=== PATIENT | female | born 1955 | race Caucasian/White ===

== ENCOUNTER → 2016-09-19 | Outpatient (CLI) | payer BC ==
[~2016-09-19] MED LIST: SIMV20TA2 PO
--- NOTE | 2016-09-19 13:11 | DIAGNOSTIC IMAGING REPORT ---
CHEST 2 VIEWS ROUTINE CLINICAL HISTORY: R06.02 SOB (shortness of breath) on [id number] dyspnea COMPARISON STUDY: 08/23/2009 FINDINGS: The bones soft tissues and hemidiaphragms are normal. The cardiomediastinal silhouette is normal. The lungs are clear. The pulmonary vasculature is normal. IMPRESSION: Negative chest. Electronically signed by: Arturo Vinson M.D. 09/19/2016 1:09 PM Dictated Date/Time: 09/19/2016 1:09 PM
== END | disposition home or self-care (01) ==
LOC: C.RAD 12:49
PROVIDERS: ATTEND Internal Medicine
DX: R06.02 Shortness of breath (principal)

== ENCOUNTER → 2016-09-19 | Outpatient (CLI) | payer BC ==
[2016-09-19 14:03] LABS: URINE APPEARANCE CLEAR (CLEAR); URINE BILIRUBIN NEG (NEG); URINE COLOR YELLOW; URINE EPITHELIAL CELL AUTO 0-5 /lpf (0-5); URINE NITRITE NEG (NEG); URINE PH 5.5 (4.5-7.5); URINE SPECIFIC GRAVITY 1.016 (1.000-1.030); UROBILINOGEN NEG (NEG); ZZUR CULT IF INDIC CLEAN CATCH YES
[2016-09-19 14:13] LABS: MANUAL MICROSCOPIC REQUIRED? NO; REVIEW REQ? NO
== END | disposition home or self-care (01) ==
LOC: C.LABSPEC 10:57
PROVIDERS: ATTEND Internal Medicine
DX: R30.0 Dysuria (principal)

== ENCOUNTER → 2016-10-14 | Outpatient (CLI) | payer BC ==
[2016-10-14 11:31] LABS: HEMATOCRIT 38.7 % (37-47); MEAN CELL VOLUME 86.2 fL (80-100); MEAN CORPUSCULAR HGB CONC 33.6 g/dl (32-36); MEAN PLATELET VOLUME 10.3 fL (7.4-10.4); PLATELET COUNT 235 K/uL (130-400); RED BLOOD COUNT 4.49 M/uL (4.2-5.4); WHITE BLOOD COUNT 3.84 K/uL (4.8-10.8)
[2016-10-14 11:46] LABS: ALT/SGPT 23 U/L (12-78); AST/SGOT 14 U/L (15-37); BLOOD UREA NITROGEN 19 mg/dl (7-18); BUN/CREATININE RATIO 25.5 (10-20); CALCIUM 8.4 mg/dl (8.5-10.1); CARBON DIOXIDE 30 mmol/L (21-32); CHLORIDE 106 mmol/L (98-107); CREATININE 0.74 mg/dl (0.60-1.20); ESTIMATED AVERAGE GLUCOSE 160 mg/dl; GLUCOSE 148 mg/dl (70-99); HA1C FLAG Normal (Normal); POTASSIUM 4.2 mmol/L (3.5-5.1); SODIUM 143 mmol/L (136-145)
[2016-10-14 11:57] LABS: ALB/GLOB RATIO 1.2 (0.9-2); ALKALINE PHOSPHATASE 61 U/L (45-117); CHOLESTEROL 158 mg/dl (0-200); CHOLESTEROL/HDL RATIO 2.6; HDL CHOLESTEROL 61 mg/dl; LDL CHOLESTEROL CALCULATED 87 mg/dl; TRIGLYCERIDES 48 mg/dl (0-150); VERY LOW DENSITY LIPOPROT CALC 10 mg/dl
== END | disposition home or self-care (01) ==
LOC: C.LABBC 07:53
PROVIDERS: ATTEND Internal Medicine
DX: E11.9 Type 2 diabetes mellitus without complications (principal)

== ENCOUNTER → 2017-01-01 | Outpatient (CLI) | payer BC ==
[2017-01-01 17:47] LABS: LYME DISEASE AB IGG NEG (NEG); LYME DISEASE AB IGM NEG (NEG)
--- NOTE | 2017-01-15 13:31 | CODING QUERY NO DIAGNOSIS ---
TREATMENT RENDERED WITHOUT A DIAGNOSIS To promote full compliance with coding requirements relating to patient care, physician participation is requested in all cases of mud trucker uncertainty. Please assist us with providing a diagnosis/symptom for the test(s) below: A diagnosis/symptom was not documented on your Order. A valid diagnosis/symptom is required to bill all insurances. Please remember that we are unable to code a diagnosis of rule out, probable, possible, questionable, or suspected. Tests that require a diagnosis: * LYME IGG & IGM +WB CONFIRM DIAGNOSIS: Provider Signature: Date: Thank you Sharon [place] [employer] Information Management Once completed, please kindly fax back to [phone] For questions please call [phone]
== END | disposition home or self-care (01) ==
LOC: C.LABBC 09:31
PROVIDERS: ATTEND Physician Assistant Medical
DX: T14.8 Other injury of unspecified body region (principal); X58.XXXA Exposure to other specified factors, initial encounter

== ENCOUNTER → 2017-02-08 | Outpatient (CLI) | payer BC | END | disposition home or self-care (01) | LOC: C.PAPS 18:17 | PROVIDERS: ATTEND Obstetrics & Gynecology | DX: Z01.419 Encounter for gynecological examination (general) (routine) without abnormal findings (principal) ==

== ENCOUNTER → 2017-03-04 | Outpatient (CLI) | payer BC ==
[2017-03-04 18:11] LABS: LYME DISEASE AB IGG NEG (NEG); LYME DISEASE AB IGM NEG (NEG)
--- NOTE | 2017-03-26 08:20 | EDITING REQUIRED CODING QUERY ---
TREATMENT RENDERED WITHOUT A DIAGNOSIS To promote full compliance with coding requirements relating to patient care, physician participation is requested in all cases of information coder uncertainty. Please assist us with providing a diagnosis/symptom for the test(s) below: A diagnosis/symptom was not documented on your Order. A valid diagnosis/symptom is required to bill all insurances. Please remember that we are unable to code a diagnosis of rule out, probable, possible, questionable, or suspected. Tests that require a diagnosis: WE NEED A PRIMARY DX. CANT USE TICK BITE PRIMARY LYME ROUTINE VENIPUNCTURE nonvenomous insect bite. Provider Signature: Date: Thank you Nelida Hernandez [facility] Information Management Once completed, please kindly fax back to [phone] For questions please call [phone]
== END | disposition home or self-care (01) ==
LOC: C.LABBFT 16:32
PROVIDERS: ATTEND Physician Assistant Medical
DX: S20.162A Insect bite (nonvenomous) of breast, left breast, initial encounter (principal); W57.XXXA Bitten or stung by nonvenomous insect and other nonvenomous arthropods, initial encounter

== ENCOUNTER → 2017-04-16 | Outpatient (CLI) | payer BC ==
--- NOTE | 2017-04-16 15:33 | MAMMOGRAPHY REPORT ---
BILATERAL DIGITAL SCREENING MAMMOGRAM TOMOSYNTHESIS WITH CAD: 04/16/2017 CLINICAL HISTORY: Routine screening. Patient has no complaints. TECHNIQUE: Breast tomosynthesis in addition to standard 2D mammography was performed. Current study was also evaluated with a Computer Aided Detection (CAD) system. COMPARISON: Comparison is made to exams dated: 04/14/2016 mammogram, 04/24/2015 mammogram, 04/11/2015 ma mmogram, 04/10/2014 mammogram, 10/23/2013 mammogram, and 04/10/2013 mammogram - [facility] nter. BREAST COMPOSITION: There are scattered areas of fibroglandular density in both breasts. FINDINGS: No suspicious masses, calcifications, or areas of architectural distortion are noted in ei ther breast. There has been no significant interval change compared to prior exams. Bilateral benign -appearing calcifications are not significantly changed. Biopsy marker clips are again noted within the left upper outer quadrant. IMPRESSION: ACR BI-RADS CATEGORY 2: BENIGN There is no mammographic evidence of malignancy. A 1 year screening mammogram is recommended. The pa tient will receive written notification of the results. Approximately 10% of breast cancers are not detected with mammography. A negative mammographic report should not delay biopsy if a clinically suggestive mass is present. Olga Macias M.D. ah/:04/16/2017 10:27:34 Multifocal Button Grinder: Tori DERAS(Rigoberto)(Yamilka)(BD), [facility] letter sent: Normal 1/2 BI-RADS Code: ACR BI-RADS Category 2: Benign
== END | disposition home or self-care (01) ==
LOC: C.MAMM 08:31
PROVIDERS: ATTEND Obstetrics & Gynecology
DX: Z12.31 Encounter for screening mammogram for malignant neoplasm of breast (principal)

== ENCOUNTER → 2017-04-22 | Outpatient (CLI) | payer BC ==
[2017-04-22 10:53] LABS: BASO % 0.2 %; BASO ABS # 0.01 K/uL (0-0.2); COMPLETE YES; HEMATOCRIT 39.1 % (37-47); LYMPH % 34.9 %; MEAN CELL VOLUME 88.1 fL (80-100); MEAN PLATELET VOLUME 9.9 fL (7.4-10.4); MONO % 13.2 %; NEUT % 48.7 %; PLATELET COUNT 242 K/uL (130-400); RED BLOOD COUNT 4.44 M/uL (4.2-5.4); WHITE BLOOD COUNT 4.01 K/uL (4.8-10.8)
[2017-04-22 11:26] LABS: ALT/SGPT 23 U/L (12-78); BLOOD UREA NITROGEN 10 mg/dl (7-18); CALCIUM 8.7 mg/dl (8.5-10.1); CARBON DIOXIDE 31 mmol/L (21-32); CHLORIDE 104 mmol/L (98-107); GLUCOSE 142 mg/dl (70-99); POTASSIUM 4.2 mmol/L (3.5-5.1); SODIUM 140 mmol/L (136-145)
[2017-04-22 11:38] LABS: ALB/GLOB RATIO 1.1 (0.9-2); ALKALINE PHOSPHATASE 73 U/L (45-117); AST/SGOT 18 U/L (15-37); BUN/CREATININE RATIO 14.1 (10-20); CHOLESTEROL 173 mg/dl (0-200); CHOLESTEROL/HDL RATIO 3.1; CREATININE 0.69 mg/dl (0.60-1.20); HDL CHOLESTEROL 55 mg/dl; LDL CHOLESTEROL CALCULATED 99 mg/dl; TRIGLYCERIDES 96 mg/dl (0-150); VERY LOW DENSITY LIPOPROT CALC 19 mg/dl
[2017-04-22 12:00] LABS: ESTIMATED AVERAGE GLUCOSE 163 mg/dl; HA1C FLAG Normal (Normal)
== END | disposition home or self-care (01) ==
LOC: C.LABBC 07:44
PROVIDERS: ATTEND Internal Medicine
DX: E11.65 Type 2 diabetes mellitus with hyperglycemia (principal)

== ENCOUNTER → 2017-07-30 | Outpatient (CLI) | payer BC ==
[2017-07-30 13:50] LABS: LYME DISEASE AB IGG NEG (NEG); LYME DISEASE AB IGM NEG (NEG)
== END | disposition home or self-care (01) ==
LOC: C.LABBC 09:09
PROVIDERS: ATTEND Physician Assistant Medical
DX: T14.8XXA Other injury of unspecified body region, initial encounter (principal); W57.XXXA Bitten or stung by nonvenomous insect and other nonvenomous arthropods, initial encounter

== ENCOUNTER → 2017-11-05 | Outpatient (CLI) | payer OTHER ==
[2017-11-05 11:29] LABS: ALBUMIN 3.8 gm/dl (3.4-5.0); ALT/SGPT 25 U/L (12-78); AST/SGOT 18 U/L (15-37); BLOOD UREA NITROGEN 14 mg/dl (7-18); CALCIUM 8.7 mg/dl (8.5-10.1); CARBON DIOXIDE 30 mmol/L (21-32); CHOLESTEROL 182 mg/dl (0-200); CREATININE 0.76 mg/dl (0.60-1.20); GLUCOSE 186 mg/dl (70-99); SODIUM 139 mmol/L (136-145)
[2017-11-05 11:39] LABS: ALKALINE PHOSPHATASE 79 U/L (45-117); LDL CHOLESTEROL CALCULATED 105 mg/dl; TOTAL PROTEIN 7.1 gm/dl (6.4-8.2)
[2017-11-05 11:53] LABS: HEMOGLOBIN A1C 7.8 % (4.5-5.6)
== END | disposition home or self-care (01) ==
LOC: C.LABBC 08:08
PROVIDERS: ATTEND Internal Medicine
DX: E11.65 Type 2 diabetes mellitus with hyperglycemia (principal)

== ENCOUNTER 2017-12-23 05:20 | Observation (INO) | payer OTHER ==
[2017-12-13 08:09] VITALS: BMI 26.0
--- NOTE | 2017-12-13 08:38 | PAT Medication Instructions ---
"Service Date Dec 13, 2017. Current Home Medication List Ascorbic Acid (Vitamin C), 1 TAB PO TID Aspirin (Aspirin Ec), 81 MG PO QAM Calcium (Calcium), Unknown Dose QDD Dexlansoprazole (Dexilant), 1 CAP PO QAM Glipizide (Glipizide Er), 1 TAB PO QAM Levothyroxine Sodium (Levothyroxine Sodium), 1 TAB PO QAM Metformin Hcl (Glucophage), 500 MG PO TID Multivitamin (Multivitamin), 1 TAB PO QDD Nystatin/Triamcinolone (Mycogen ||), 1 APPLN TOP UD PRN for PRN Simvastatin (Zocor), 20 MG PO QPM Vitamin E (Vitamin E), 1 TAB PO QDD Medication Instructions For Your Scheduled Surgery - Hold the following medications starting tomorrow (12/14): Vitamin E (Vitamin E), 1 TAB PO QDD - Hold the following medications 5 days prior to surgery (per surgeon): Aspirin (Aspirin Ec), 81 MG PO QAM - Hold the following medications 24 hours prior to surgery: Nystatin/Triamcinolone (Mycogen ||), 1 APPLN TOP UD PRN for PRN - Hold the following medications the morning of surgery: Ascorbic Acid (Vitamin C), 1 TAB PO TID Glipizide (Glipizide Er), 1 TAB PO QAM Metformin Hcl (Glucophage), 500 MG PO TID - Take the following medications the morning of surgery with a sip of water: Dexlansoprazole (Dexilant), 1 CAP PO QAM Levothyroxine Sodium (Levothyroxine Sodium), 1 TAB PO QAM - Take the following medications as scheduled the night before surgery: Ascorbic Acid (Vitamin C), 1 TAB PO TID Calcium (Calcium), Unknown Dose QDD Metformin Hcl (Glucophage), 500 MG PO TID Multivitamin (Multivitamin), 1 TAB PO QDD Simvastatin (Zocor), 20 MG PO QPM If you have any questions please call us at [phone] or [phone] or [phone]"
[2017-12-13 10:39] LABS: BASO % 0.6 %; BASO ABS # 0.02 K/uL (0-0.2); EOS % 1.2 %; EOS ABS # 0.04 K/uL (0-0.5); HEMATOCRIT 37.6 % (37-47); HEMOGLOBIN 12.7 g/dL (12.0-16.0); LYMPH % 29.9 %; LYMPH ABS # 1.01 K/uL (1.2-3.4); MEAN CELL VOLUME 87.4 fL (80-100); MEAN CORPUSCULAR HEMOGLOBIN 29.5 pg (25-34); MEAN CORPUSCULAR HGB CONC 33.8 g/dl (32-36); MEAN PLATELET VOLUME 9.7 fL (7.4-10.4); MONO % 12.4 %; MONO ABS # 0.42 K/uL (0.11-0.59); NEUT % 55.9 %; NEUT ABS # 1.89 K/uL (1.4-6.5); PLATELET COUNT 226 K/uL (130-400); RED CELL DISTRIBUTION WIDTH CV 12.7 % (11.5-14.5); RED CELL DISTRIBUTION WIDTH SD 40.5 fL (36.4-46.3); WHITE BLOOD COUNT 3.38 K/uL (4.8-10.8)
[~2017-12-23] VITALS: Ht 154.9 cm; Wt 61.0 kg
[2017-12-23] VITALS (9 sets, daily range): BP systolic 102–160; BP diastolic 67–90; PULSE 67–105; TEMP 36.4–36.9; O2SAT 93–98; Ht 154.9 cm; Wt 61.0 kg
[~2017-12-23 05:20] MED LIST changes: +ASCA500 PO; +ASPI81TA28 PO; +CALC1CAP24; +DEXL60CA4 PO; +GLC/500 PO; +GLIP2.5T11 PO; +LEVO100T7 PO; +MULT-506 PO; +NYSTOIN5 TOP; +VITA1TAB4 PO
[2017-12-23] MEDS: LACTATED RINGER'S 1000ML 1,000 ML IV SCH ×2 (05:54→14:46)
[2017-12-23] MEDS ORDERED: CEFAZOLIN 2000MG IV PUSH 15 ML IV SCH (06:00)
[2017-12-23] MEDS ORDERED: DEXAMETHASONE SOD INJ 4 MG/ML VIAL ONE (06:46)
[2017-12-23] MEDS ORDERED: NEOSTIGMINE METHYLSULFATE 5 MG/5 ML SYR ONE (06:46)
[2017-12-23] MEDS ORDERED: GLYCOPYRROLATE INJ 0.2 MG/ML VIAL ONE ×2 (06:46→07:35)
[2017-12-23] MEDS ORDERED: FENTANYL CITRATE INJ 50 MCG/1 ML 2 ML VIAL ONE ×2 (06:46→07:50)
[2017-12-23] MEDS ORDERED: LIDOCAINE HCL 2% 2 ML VIAL (20MG/ML) ONE (06:46)
[2017-12-23] MEDS ORDERED: PROPOFOL IV EMULSION 10 MG/ML 20 ML VIAL ONE (06:46)
[2017-12-23] MEDS ORDERED: ONDANSETRON INJ 2 MG/ML 2 ML VIAL ONE (06:46)
[2017-12-23] MEDS ORDERED: MIDAZOLAM HCL 1 MG/ML 2ML VIAL ONE (06:47)
--- NOTE | 2017-12-23 06:49 | History & Physical Bridge Note ---
H&P Re-Evaluation Bridge Note: I have examined the patient, reviewed the History & Physical and in the interval since the performance of the History & Physical I have noted the following changes of clinical significance: No changes noted
[2017-12-23] MEDS ORDERED: EpINEphrine INJ 1MG/ML AMP 1 MG/ML AMP ONE (06:53)
[2017-12-23] MEDS ORDERED: BUPIVACAINE 0.5 % 5 MG/1 ML MPF 30ML VIAL ONE (06:53)
[2017-12-23] MEDS ORDERED: NURSING VERBAL MED ORDER ONE ×2 (06:55→12:45)
[2017-12-23] MEDS ORDERED: SCOPOLAMINE 1.5 MG TDSY TD ONE (06:57)
[2017-12-23] MEDS ORDERED: SUCCINYLCHOLINE CHLORIDE 20 MG/ML 10 ML VIAL IV ONE (07:35)
[2017-12-23] MEDS ORDERED: LARYING-O-JET KIT (LTA) ONE (07:35)
[2017-12-23] MEDS ORDERED: ROCURONIUM BROMIDE 10 MG/ML 5 ML VIAL ONE (07:35)
[2017-12-23] MEDS ORDERED: PHENYLEPHRINE 100MCG/ML 5ML SYR ONE (07:35)
[2017-12-23] MEDS ORDERED: EpHEDrine SULFATE 50MG/5ML SYR ONE (07:35)
[2017-12-23] MEDS ORDERED: ATROPINE SULFATE 0.1 MG/ML 5ML SYR IV PRN (07:45)
[2017-12-23] MEDS ORDERED: PHENYLEPHRINE 100MCG/ML 5ML SYR IV PRN (07:45)
[2017-12-23] MEDS ORDERED: HYDROmorphone INJ 2 MG/ML SYR/VIAL IV PRN (07:45)
[2017-12-23] MEDS ORDERED: ONDANSETRON INJ 2 MG/ML 2 ML VIAL IV PRN ×2 (07:45→09:15)
[2017-12-23] MEDS ORDERED: EpHEDrine SULFATE INJ 50 MG/ML AMP IV PRN (07:45)
[2017-12-23] MEDS ORDERED: ESMOLOL HCL 10 MG/ML 10 ML VIAL ONE (08:16)
[2017-12-23] MEDS ORDERED: KETOROLAC TROMETHAMINE 30 MG/ML VIAL ONE (08:37)
--- NOTE | 2017-12-23 08:45 | [facility] Post Operative Brief Note ---
Immediate Operative Summary Operative Date December 23, 2017. Pre-Operative Diagnosis Symptomatic Hiatal Hernia Post-Operative Diagnosis Symptomatic Hiatal Hernia Procedure(s) Performed Laparoscopic Hiatal Hernia Repair with Gastropexy Surgeon Dr Tucker Cv Rn Surgeon(s) Anika Roldan Estimated Blood Loss 5cc Findings Consistent with Post-Op Diagnosis Specimens None as per surgeon Anesthesia Type General Complication(s) none
[2017-12-23] MEDS ORDERED: HYDROCODONE/ACETAMIN 5/325MG TAB PO PRN (09:15)
[2017-12-23] MEDS ORDERED: IBUPROFEN 600 MG TAB PO PRN (09:15)
[2017-12-23] MEDS ORDERED: MoRPHine SULFATE 4 MG/ML 1 ML CARP\\VIAL IV PRN ×2 (09:15)
[2017-12-23] MEDS ORDERED: IV FLUIDS COMPLETED PRN (10:15)
--- NOTE | 2017-12-23 10:46 | Anesthesiology Progress Note ---
Anesthesia Post Op Note Date & Time December 23, 2017 at 10:46 Vital Signs Pain Intensity: 1 Vital Signs Past 12 Hours Date Time Temp Pulse Resp B/P (MAP) Pulse Ox O2 Delivery O2 Flow Rate FiO2 12/23/17 09:55 153/79 12/23/17 09:52 68 16 12/23/17 09:52 69 16 98 12/23/17 09:51 146/71 12/23/17 09:47 66 18 97 12/23/17 09:47 66 18 12/23/17 09:45 152/86 12/23/17 09:42 89 12 97 12/23/17 09:42 88 12 12/23/17 09:41 36.5 147/76 12/23/17 09:40 87 13 97 12/23/17 09:40 87 13 12/23/17 09:35 86 11 12/23/17 09:35 86 11 157/81 97 12/23/17 09:30 66 15 149/83 100 12/23/17 09:30 66 15 12/23/17 09:26 162/82 12/23/17 09:25 67 13 12/23/17 09:25 70 13 100 12/23/17 09:21 164/75 12/23/17 09:20 Nasal Cannula 3 12/23/17 09:20 85 14 100 12/23/17 09:20 84 14 12/23/17 09:15 78 13 12/23/17 09:15 65 13 157/76 100 12/23/17 09:10 89 14 12/23/17 09:10 89 14 154/84 100 12/23/17 09:05 91 14 12/23/17 09:05 90 14 154/86 100 12/23/17 09:02 154/83 12/23/17 09:01 135/109 12/23/17 09:00 96 17 12/23/17 09:00 96 17 99 12/23/17 08:55 99 18 140/79 99 12/23/17 08:55 99 18 12/23/17 08:55 36.2 98 16 140/79 100 Oxymask 10 12/23/17 05:44 36.9 91 16 160/90 (113) 96 Room Air Notes Mental Status: alert / awake / arousable, participated in evaluation Pt Amnestic to Procedure: Yes Nausea / Vomiting: adequately controlled Pain: adequately controlled Airway Patency, RR, SpO2: stable & adequate BP & HR: stable & adequate Hydration State: stable & adequate Anesthetic Complications: no major complications apparent
[2017-12-23] MEDS ORDERED: D5W AND 1/2NSS + 20MEQ KCL 1,000 ML IV SCH (11:30)
[2017-12-23 11:43] LABS: PTT PATIENT 22.9 SECONDS (21.0-31.0)
--- NOTE | 2017-12-23 11:49 | [facility] Operative Report ---
Operative Report Operative Date December 23, 2017. Pre-Operative Diagnosis Symptomatic Hiatal Hernia Post-Operative Diagnosis Symptomatic Hiatal Hernia Procedure(s) Performed Laparoscopic Hiatal Hernia Repair with Gastropexy Surgeon Dr Tucker Psych Np Surgeon(s) Anika Roldan Estimated Blood Loss 5cc Specimens None as per surgeon Anesthesia Type General Complication(s) none Description of Procedure After informed consent was obtained the patient was taken to the operating room and placed in the supine position. After successful intubation the abdomen was sterilely prepped and draped in usual fashion. A supraumbilical incision was made with 11 blade scalpel and carried down through the soft tissues electrocautery. Anterior rectus fascia was opened using electrocautery and 2 # 0 Vicryl stay sutures were placed. Peritoneum was elevated with hemostats and incised under direct vision using a Metzenbaum scissor. A finger sweep was performed to take down any underlying adhesions and a 12 mm Cabrales trocar was placed. The abdomen was insufflated to 18 mmHg. Laparoscope was inserted and the abdomen was examined 360. No gross abnormalities are identified. A subxiphoid 12 mm port a right upper quadrant 5 mm port in the left mid abdominal 5 mm port and a right mid abdominal 5 mm port were all placed under direct vision. A liver retractor was used throughout the case to help with exposure. When we elevated the left lobe liver it did show a moderate-sized probably 5 cm hiatal hernia with gastric incarceration. Probably one third of the stomach was incarcerated. We are able to place the patient in a reverse Trendelenburg position and reduce the stomach without much difficulty. We had anesthesia replace the NG tube with a 50 Uzbek bougie to help identify the esophagus. I began along the right sheila the diaphragm and took down the gastrohepatic ligament. I followed the right sheila up and around anteriorly and took down the hernia sac. I continued to work my way around the lateral side just medial to the left sheila of the diaphragm. Eventually I was able to completely excise the hernia sac with the sonocision device. Once we had this down the esophagus itself was readily identifiable. I was able able to elevate it and skeletonized the diaphragm so that I could place a posterior stitch. I used the Endo Stitch device with 0 Surgidac sutures. I reapproximated the left and right crew posterior to the esophagus initially. Once this was done I then closed it primarily superior to the esophagus as well. Once I had the defect completely closed it did not appear to be impinging on the esophagus itself. I was able to easily remove the bougie without difficulty. The diaphragm was rather lax and I was able to perform this repair without undue tension. I then decided perform a gastropexy in case the sutures would fail. I again used O Surgidac and sutured the cardia of the stomach on the lesser curvature side to the right sheila the diaphragm. I then secured the fundus to the left sheila the diaphragm. There was adequate hemostasis at the end of the procedure. No other abnormalities were identified in the abdomen. The trochars were removed and the abdomen was desufflated. The fascia the camera port was closed using 0 Vicryl [id number] fashion. All wounds were irrigated and closed using 4-0 Monocryl. Marcaine was injected around for postoperative analgesia and skin glue used as a dressing. Patient was awakened extubated transferred recovery in stable condition. My physician communications assistant was present throughout the entire case. She helped prep the patient. She helped with exposure for trocar placement. She helped retract the stomach throughout as well as manage the camera. She also helped with wound closure and dressing placement. I attest to the content of the Intraoperative Record and any orders documented therein. Any exceptions are noted below.
[2017-12-23 12:00] LABS: CREATININE 0.62 mg/dl (0.60-1.20)
[2017-12-23] MEDS: PANTOprazole INJ 40 MG in SYRINGE 0 ML IV SCH (12:45)
[2017-12-23] MEDS: METFORMIN HCL 500 MG TAB PO SCH ×2 (13:37→21:22)
[2017-12-23] MEDS: CHECK SCOPOLAMINE PATCH PLACEMENT SCH (16:16)
[2017-12-23] MEDS: HYDROCODONE/ACETAMIN 5/325MG TAB PO PRN (19:27)
[2017-12-24] MEDS: LACTATED RINGER'S 1000ML 1,000 ML IV SCH ×2 (00:51→07:51)
[2017-12-24 02:54] VITALS: BP 113/71; PULSE 72; TEMP 36.7; O2SAT 90
[2017-12-24 07:22] VITALS: BP 120/66; PULSE 75; TEMP 36.9; O2SAT 93
[2017-12-24] MEDS: CHECK SCOPOLAMINE PATCH PLACEMENT SCH ×2 (07:33)
[2017-12-24] MEDS: HYDROCODONE/ACETAMIN 5/325MG TAB PO PRN (07:36)
--- NOTE | 2017-12-24 07:54 | Anesthesiology Progress Note ---
Anesthesia Post Op Note Date & Time December 24, 2017 at 07:54 Vital Signs Pain Intensity: 6.0 Vital Signs Past 12 Hours Date Time Temp Pulse Resp B/P (MAP) Pulse Ox O2 Delivery O2 Flow Rate FiO2 12/24/17 07:22 36.9 75 17 120/66 (84) 93 Room Air 12/24/17 02:54 36.7 72 14 113/71 (85) 90 Room Air 12/23/17 23:45 Room Air 12/23/17 23:28 36.6 75 14 102/67 (79) 93 Room Air 12/23/17 20:10 36.7 105 18 144/80 (101) 96 Room Air Notes Mental Status: alert / awake / arousable, participated in evaluation Pt Amnestic to Procedure: Yes Nausea / Vomiting: adequately controlled Pain: adequately controlled Airway Patency, RR, SpO2: stable & adequate BP & HR: stable & adequate Hydration State: stable & adequate Anesthetic Complications: no major complications apparent
[2017-12-24] MEDS ORDERED: ENOXAPARIN 40 MG/0.4 ML SYR SQ SCH (09:00)
--- NOTE | 2017-12-24 10:24 | Surgery Progress Note ---
Surgery Progress Note Date of Service December 24, 2017. Subjective Post OP Day: 1 + feeling well expected soreness. no appetite. connie liquids. pain control adequate Objective Vital Signs: Date Time Temp Pulse Resp B/P (MAP) Pulse Ox O2 Delivery O2 Flow Rate FiO2 12/24/17 07:30 Room Air 12/24/17 07:22 36.9 75 17 120/66 (84) 93 Room Air 12/24/17 02:54 36.7 72 14 113/71 (85) 90 Room Air 12/23/17 23:45 Room Air 12/23/17 23:28 36.6 75 14 102/67 (79) 93 Room Air 12/23/17 20:10 36.7 105 18 144/80 (101) 96 Room Air 12/23/17 16:15 Room Air 12/23/17 15:30 36.4 94 16 120/75 (90) 94 Room Air 12/23/17 13:10 36.5 95 16 124/76 (92) 98 Nasal Cannula 2.0 12/23/17 12:08 75 16 129/77 (94) 97 Nasal Cannula 2.0 12/23/17 11:10 36.5 75 16 121/73 (89) 96 2.0 12/23/17 10:40 88 16 136/78 (97) 93 Nasal Cannula 3.0 General Appearance: no apparent distress Respiratory/Chest: no respiratory distress, no accessory muscle use Abdomen: soft Incision(s): clean, dry, intact Laboratory Results: Results Past 24 Hours Test 12/23/17 11:23 12/23/17 12:14 12/23/17 17:05 12/23/17 20:10 Range/Units Prothrombin Time 10.6 9.0-12.0 SECONDS Prothromb Time International Ratio 1.0 0.9-1.1 Activated Partial Thromboplast Time 22.9 21.0-31.0 SECONDS Partial Thromboplastin Ratio 0.9 Creatinine 0.62 0.60-1.20 mg/dl Est Creatinine Clear Calc Drug Dose 76.8 ml/min Estimated GFR () 110.4 Estimated GFR (Non- 95.3 Bedside Glucose 184 137 198 70-90 mg/dl Assessment & Plan POD #1 from hiatal hernia repair. connie diet symptoms controlled ok for d/c. instructions given
[2017-12-24] MEDS ORDERED: HYDR-5688 PO (10:25)
--- NOTE | 2017-12-24 10:27 | Discharge Instructions ---
Discharge Instructions Date of Service December 24, 2017. Admission Reason for Admission: Hiatal Hernia, Gerd, Diabetes Discharge Discharge Diagnosis / Problem: hiatal hernia/gerd Discharge Goals Goal(s): Improve function, Therapeutic intervention, Prevent Disease Progression Activity Recommendations Activity Limitations: as noted below Lifting Limitations: no more than 10 pounds Exercise/Sports Limitations: until after follow-up appointment May Resume Sexual Activity: after follow-up appointment Shower/Bathe: no limitations . Instructions / Follow-Up Instructions / Follow-Up call [phone] for any questions or concerns Current Hospital Diet Patient's current hospital diet: Clear Liquid Diet Discharge Diet Recommended Diet: Full Liquid Diet (liquid/soft as discussed) Procedures Procedures Performed: Laparoscopic Hiatal Hernia Repair with Gastropexy Pending Studies Studies pending at discharge: no Laboratory Results Hemoglobin A1c Test 11/05/17 08:10 Range/Units Estimated Average Glucose 177 mg/dl Hemoglobin A1c 7.8 H 4.5-5.6 % Lipid Panel Test 11/05/17 08:10 Range/Units Triglycerides Level 88 0-150 mg/dl Cholesterol Level 182 0-200 mg/dl HDL Cholesterol 59 mg/dl Cholesterol/HDL Ratio 3.1 LDL Cholesterol, Calculated 105 mg/dl Medical Emergencies . Who to Call and When: Medical Emergencies: If at any time you feel your situation is an emergency, please call 911 immediately. . Non-Emergent Contact Non-Emergency issues call your: Primary Care Provider, Surgeon Call Non-Emergent contact if: temperature is above 101, wound has increased drainage, wound has increased redness, wound has increased pain . "Provider Documentation" section prepared by Luis Tucker. .
[2017-12-24] MEDS: PANTOprazole INJ 40 MG in SYRINGE 0 ML IV SCH (11:06)
[2017-12-24] MEDS: METFORMIN HCL 500 MG TAB PO SCH (11:07)
[2017-12-24 11:16] VITALS: BP 120/66; PULSE 75; TEMP 36.9; O2SAT 93
--- NOTE | 2017-12-30 10:36 | Discharge Summary ---
"Discharge Summary Date of Service December 30, 2017. Admission Date/Reason December 23, 2017 at 09:10 Hiatal Hernia, Gerd, Diabetes. Discharge Date/Disposition December 24, 2017 Home Diagnosis Principal Diagnosis: Hiatal Hernia Procedure(s) Performed Laparoscopic Hiatal Hernia Repair with Gastropexy Medication Reconciliation New Medications: Hydrocodone/Acetaminophen 5MG/325MG ([place] 5MG/325MG) Tab 1-2 TABLET PO Q4 PRN for Pain, #30 TAB Continued Medications: Ascorbic Acid (Vitamin C) 500 Mg Tab 1 TAB PO TID Aspirin (Aspirin Ec) 81 Mg Tab 81 MG PO QAM Calcium (Calcium) Unknown Strength Cap Unknown Dose QDD Dexlansoprazole (Dexilant) 60 Mg Cap 1 CAP PO QAM Glipizide (Glipizide Er) 2.5 Mg Tab 1 TAB PO QAM for 90 Days, #90 TAB 3 Refills Levothyroxine Sodium (Levothyroxine Sodium) 100 Mcg Tab 1 TAB PO QAM for 90 Days, #90 TAB 3 Refills Metformin Hcl (Glucophage) 500 Mg Tab 500 MG PO TID, TAB Multivitamin (Multivitamin) Tab 1 TAB PO QDD, TAB Nystatin/Triamcinolone (Mycogen ||) Oint 1 APPLN TOP UD PRN for PRN Simvastatin (Zocor) 20 Mg Tab 20 MG PO QPM, 0 Refills Vitamin E (Vitamin E) 400 Unit Tab 1 TAB PO QDD Admission Physical Exam As per Admitting History & Physical. Hospital Course Ms. Ron is a 62-year-old female who was admitted for observation after undergoing an elective Laparoscopic Hiatal Hernia Repair with Gastropexy with Dr. Luis Tucker at [facility]. Pre-Operative Dx- Symptomatic Hiatal Hernia Post-Op Diagnosis- Symptomatic Hiatal Hernia Post-Operatively, patient was admitted for pain control. Patient did well post- operatively, pain was controlled. Patient afebrile. Patient tolerated liquid diet without difficulty. Vitals remained stable. Patient was deemed eligible for discharge on POD #1 with instructions to follow a full liquid diet. Both verbal and written discharge instructions were provided. Return precautions reviewed. Patient to follow-up with Dr. Tucker in the General Surgery Clinic. Discharge Instructions Please refer to the electronic Patient Visit Report (Discharge Instructions) for additional information."
== END 2017-12-24 11:32 | disposition home or self-care (01) ==
LOC: C.ACU 05:20 → C.MSN 09:10 → ENRESERV 09:46 → C.MSN 10:45
PROVIDERS: ADMIT Surgery; ATTEND Surgery
DX: K44.9 Diaphragmatic hernia without obstruction or gangrene (principal); K21.9 Gastro-esophageal reflux disease without esophagitis; E11.65 Type 2 diabetes mellitus with hyperglycemia; E78.5 Hyperlipidemia, unspecified; E03.9 Hypothyroidism, unspecified; Z82.49 Family history of ischemic heart disease and other diseases of the circulatory system; Z79.82 Long term (current) use of aspirin; Z88.1 Allergy status to other antibiotic agents